=== PATIENT | female | born 1995 | race African-American/Black ===

== ENCOUNTER 2018-06-21 10:26 | Emergency (ER) | payer BC ==
[~2018-06-21] VITALS: Ht 172.7 cm; Wt 79.5 kg
[~2018-06-21 10:26] MED LIST: APRI 0.15 MG-0.1 TAB PO; ZOLOFT 100MG100 MG PO
[2018-06-21 10:35] VITALS: BP 134/76
[2018-06-21 11:26] VITALS: PULSE 89; TEMP 97.7
== END 2018-06-21 11:26 | disposition home or self-care (01) ==
LOC: COL.ER 10:26
DX: S51.812A Laceration without foreign body of left forearm, initial encounter (principal); W26.8XXA Contact with other sharp object(s), not elsewhere classified, initial encounter; Y99.0 Civilian activity done for income or pay

== ENCOUNTER 2019-06-26 11:27 | Emergency (ER) | payer BC ==
[~2019-06-26] VITALS: Ht 172.7 cm; Wt 79.5 kg
[2019-06-26 12:06] VITALS: TEMP 98.4
[2019-06-26 12:30] LABS: BASO % 0.1 % (0.0-2.0); EOS % 0.2 % (0-4.0); GRAN # 6.3 (1.4-6.5); GRAN % 75.8 % (42.2-75.2); HEMOGLOBIN 14.3 g/dl (12.5-16.0); LYMPH # 1.6 (1.2-3.4); MEAN CELL VOLUME 90 fl (80.0-100.0); MEAN CORPUSCULAR HEMOGLOBIN 30 pg (27.0-31.0); MEAN CORPUSCULAR HGB CONC 33 g/dl (33.0-37.0); MEAN PLATELET VOLUME 9.1 fl (7.4-10.4); MONO # 0.4 (0.1-0.6); MONO % 4.7 % (1.7-9.3); PLATELET COUNT 319 K/mm3 (130-400); RED BLOOD COUNT 4.79 M/mm3 (4.10-5.30)
[2019-06-26 12:44] LABS: ALANINE AMINOTRANSFERASE 11 U/L (9-52); ALBUMIN 4.7 gm/dL (3.5-5.0); ALKALINE PHOSPHATASE 85 U/L (50-136); ANION GAP 9 mmol/L (7-16); AST,SGOT 24 U/L (15-37); BILIRUBIN,TOTAL 0.5 mg/dL (0.0-1.0); BLOOD UREA NITROGEN 7 mg/dL (7-17); CALCIUM 9.3 mg/dL (8.4-10.2); CARBON DIOXIDE 24 mmol/L (22-30); CHLORIDE 107 mmol/L (98-107); CREATININE, serum 0.64 (0.52-1.25); GLUCOSE 100 mg/dL (74-106); LIPASE 45 U/L (23-300); POTASSIUM 3.6 mmol/L (3.4-5.0); SODIUM 140 mmol/L (137-145); TOTAL PROTEIN 8.1 gm/dL (6.4-8.2)
[2019-06-26 12:53] LABS: C-REACTIVE PROTEIN < 0.5 mg/dL (0.0-0.9)
[2019-06-26 13:31] LABS: COLLECTION METHOD CLEAN CATCH
[2019-06-26 13:39] LABS: PH 6 (5-8); SQUAMOUS EPITHELIAL 0-2 /hpf; URINE APPEARANCE Clear; URINE BACTERIA Rare /hpf; URINE BILIRUBIN Negative (NEGATIVE); URINE BLOOD 3+ (NEGATIVE); URINE COLOR Straw; URINE GLUCOSE Negative (NEGATIVE); URINE KETONE Trace (NEGATIVE); URINE LEUKOCYTE ESTERASE Negative (NEGATIVE); URINE NITRATE Negative (NEGATIVE); URINE PROTEIN(semi-quant) Negative (NEGATIVE); URINE RBC 0-2 /hpf; URINE UROBILINOGEN Negative (NEGATIVE)
[2019-06-26] MEDS ORDERED: ZOFRAN ODT4 MG PO (14:35)
[2019-06-26 14:52] VITALS: BP 125/73; PULSE 70
== END 2019-06-26 14:52 | disposition home or self-care (01) ==
LOC: COL.ER 11:27
PROVIDERS: Emergency Medicine
DX: K52.9 Noninfective gastroenteritis and colitis, unspecified (principal)
CPT/HCPCS: J0780; J2405; J7030

== ENCOUNTER 2021-02-05 09:17 | Inpatient (IN) | payer BC ==
[2021-02-05] VITALS (23 sets, daily range): BP systolic 115–153; BP diastolic 65–104; PULSE 74–111; TEMP 97.8–98.5
[~2021-02-05] VITALS: Ht 172.7 cm; Wt 90.9 kg
[~2021-02-05 09:17] MED LIST changes: +ZOFRAN ODT4 MG PO
--- NOTE | 2021-02-05 09:20 | NUR ---
09- Pt presents on unit with complaints of SROM at 0500 this morning. Pt ambulatory to room with Maikel anderson. Oriented to room. Pt into bathroom to change into gown. 927- Pt into bed, EFM and TOCO on and tracing well. Pt states she is having intermittent cramping. Denies VB. Pt has been noticing leakage of clear fluid since 0500. +FM per Pt. Pt denies complications with . Assessments completed. 944- SVE by this RN, Amniotrace positive, /-2. Clear, odorless fluid noted with exam. POC explained to Pt, questions answered. Call light within reach.
[2021-02-05] MEDS ORDERED: PRENATAL TABLET PO (09:39)
--- NOTE | 2021-02-05 11:00 | NUR ---
1047- Dr Lopez at bedside. Performs SVE. Discusses POC with Pt and family. Recommends Augmentation. Questions answered.
[2021-02-05 11:03] LABS: COLLECTION METHOD CLEAN CATCH
[2021-02-05 11:08] LABS: BASO % 0.2 % (0.0-2.0); EOS % 0.2 % (0-4.0); GRAN # 12.9 (1.4-6.5); GRAN % 82.9 % (42.2-75.2); HEMATOCRIT 34.3 % (37.0-47.0); HEMOGLOBIN 11.4 g/dl (12.5-16.0); LYMPH # 1.7 (1.2-3.4); LYMPH % 10.7 % (20.0-51.0); MEAN CELL VOLUME 90 fl (80.0-100.0); MEAN CORPUSCULAR HEMOGLOBIN 30 pg (27.0-31.0); MEAN CORPUSCULAR HGB CONC 33 g/dl (33.0-37.0); MEAN PLATELET VOLUME 9.8 fl (7.4-10.4); MONO # 0.8 (0.1-0.6); MONO % 5.2 % (1.7-9.3); PLATELET COUNT 267 K/mm3 (130-400); RED BLOOD COUNT 3.81 M/mm3 (4.10-5.30); REDCELL DISTRIBUTION WIDTH-CV 13.9 % (11.5-14.5)
[2021-02-05 11:10] LABS: PH 8 (5-8); SQUAMOUS EPITHELIAL 0-2 /hpf; URINE APPEARANCE Clear; URINE BACTERIA Rare /hpf; URINE BILIRUBIN Negative (NEGATIVE); URINE BLOOD Negative (NEGATIVE); URINE COLOR Yellow; URINE GLUCOSE Negative (NEGATIVE); URINE KETONE Negative (NEGATIVE); URINE LEUKOCYTE ESTERASE Negative (NEGATIVE); URINE NITRATE Negative (NEGATIVE); URINE PROTEIN(semi-quant) Negative (NEGATIVE); URINE UROBILINOGEN Negative (NEGATIVE)
--- NOTE | 2021-02-05 11:15 | NUR ---
Pit start @ 2mU/min @ this time per physician's orders.
[2021-02-05 11:22] LABS: ALBUMIN 3.5 gm/dL (3.5-5.0); BILIRUBIN,TOTAL 0.3 mg/dL (0.0-1.0); CALCIUM 8.7 mg/dL (8.4-10.2); CREATININE, serum 0.49 (0.52-1.25); POTASSIUM 3.8 mmol/L (3.4-5.0); TOTAL PROTEIN 6.9 gm/dL (6.4-8.2)
--- NOTE | 2021-02-05 12:00 | NUR ---
Note intermittent tracing while patient sitting upright on birthing ball. Note patient bending at waist to rest head on bed in between contractions. Note patient also intermittently bouncing on birthing ball, making it difficult to obtain continuous tracing.
--- NOTE | 2021-02-05 12:10 | NUR ---
Patient up to BR, stated needs to have a bowel movement. Instruction provided not to strain to do so. Verbalizes understanding.
--- NOTE | 2021-02-05 12:33 | NUR ---
Note patient visibly uncomfortable with pain of contractions. Plan to proceed without pain intervention. States is coping, rests between contractions.
--- NOTE | 2021-02-05 12:33 | NUR ---
Returns to bed from bathroom. Positions carline in right lateral.
--- NOTE | 2021-02-05 13:00 | NUR ---
Requests epidural @ this time. Anesthesia notified. LR bolus begun.
--- NOTE | 2021-02-05 13:25 | NUR ---
1325: Time out performed prior to epidural placement. Note this insurance underwriter, Nano, SHIV, pt sig other, and patient mother in room during this time. 1331: Single shot administered by SHIV. 1332: Epidural catheter threaded by METALLURGICAL TECHNICIAN. 1333: Needle out per anesthesia. 1333: Test dose administered by METALLURGICAL TECHNICIAN. No adverese reactions noted. Tolerates procedure well.
--- NOTE | 2021-02-05 13:43 | NUR ---
1343: Repeat SVE C/+2. 1345: notified, this insurance underwriter request she come to hospital for delivery. Room set up for delivery. Nursery nurse, charge nurse notified. 1350: here. Also present in room: this insurance underwriter, Roya Tran, RN, Ann Ambrose RN, patient significant other, and patient mother. 1352: First push attempt with instruction. 1403: Spontaneous vaginal delivery of head by . 1403: Spontaneous vaginal delivery of female infant by . Infant dried and stimulated by nursery nurse. Cord doubly clamped, and instruction provided for father of baby to cut the cord between two clamps. Infant to mother's chest following. 1405: Spontaneous vaginal delivery of placenta by . Pit bolus begun immediately following @ 333 mU/min. 1406: Red trevor catheter placed by , estimated urine return 200mL. Repair of 2nd degree laceration with 2-[address]-1 by . Note patient remains comfortable with epidural block througout repair.
[2021-02-06 03:30] VITALS: BP 122/83; PULSE 77; TEMP 98.5
[2021-02-06 07:40] VITALS: BP 114/55; PULSE 82; TEMP 98.6
--- NOTE | 2021-02-06 09:15 | NUR ---
Initial visit; Patient thanked Bar Examiner for offering congratulations and God's blessngs for the of her daughter. Bar Examiner thanked patient for choosing [facility].
[2021-02-06 12:30] VITALS: BP 127/92; PULSE 88; TEMP 98.4
[2021-02-06 16:30] VITALS: BP 128/84; PULSE 82; TEMP 98.6
[2021-02-06 20:54] VITALS: BP 134/87; PULSE 66; TEMP 98.7
[2021-02-06] MEDS ORDERED: MOTRIN 800800 MG/TAB PO (22:33)
[2021-02-07 09:10] VITALS: BP 128/78; PULSE 83; TEMP 98.6
--- NOTE | 2021-02-07 12:45 | NUR ---
Discharge instructions reviewed with pt and at the bedside. Both verbalized an understanding, agreed with the plan and states no questions or concerns at this time. Pt discharged home.
== END 2021-02-07 13:00 | disposition home or self-care (01) | DRG 807 ==
LOC: LDRO 09:17 → LDR 09:20 → OB 17:15
PROVIDERS: ADMIT Obstetrics & Gynecology
PROC: 10E0XZZ Delivery of Products of Conception, External Approach (ICD-10-PCS; principal; 2021-02-05)
PROC: 0KQM0ZZ Repair Perineum Muscle, Open Approach (ICD-10-PCS; 2021-02-05)
DX: O13.4 Gestational [pregnancy-induced] hypertension without significant proteinuria, complicating childbirth (principal); Z37.0 Single live birth; Z3A.37 37 weeks gestation of pregnancy; F32.9 Major depressive disorder, single episode, unspecified; F41.9 Anxiety disorder, unspecified; O99.824 Streptococcus B carrier state complicating childbirth; O99.344 Other mental disorders complicating childbirth; O70.1 Second degree perineal laceration during delivery
CPT/HCPCS: J2540; J2590; J7120